=== PATIENT | male | born 1945 | race Caucasian/White ===

== ENCOUNTER → 2016-03-06 | Outpatient (CLI) | payer MEDICARE, BC ==
--- NOTE | 2016-03-06 13:34 | XR ---
EXAMINATION TYPE: XR chest 2V DATE OF EXAM: 03/06/2016 1:30 PM COMPARISON: 03/15/15 HISTORY: Shortness of breath TECHNIQUE: Frontal and lateral views of the chest are obtained. FINDINGS: Scattered senescent parenchymal changes noted. Hyperinflation compatible with COPD. No evidence for infiltrate. No evidence for atelectasis. Heart size is stable. Mediastinal structures are stable and grossly unremarkable. No evidence for hilar prominence. Degenerative changes dorsal spine. IMPRESSION: 1. No evidence for acute pulmonary disease.
== END | disposition home or self-care (01) ==
LOC: RADXRMAIN 13:12
PROVIDERS: ATTEND Urology
DX: C64.9 Malignant neoplasm of unspecified kidney, except renal pelvis (principal)
CPT/HCPCS: 71020

== ENCOUNTER → 2017-10-29 | Outpatient (CLI) | payer MEDICARE ==
--- NOTE | 2017-10-29 11:26 | XR ---
EXAMINATION TYPE: XR chest 2V DATE OF EXAM: 10/29/2017 COMPARISON: 03/06/2016 HISTORY: Shortness of breath TECHNIQUE: Frontal and lateral views of the chest are obtained. FINDINGS: Scattered senescent parenchymal changes noted. Hyperinflation compatible with COPD. No evidence for infiltrate. No evidence for atelectasis. Heart size is stable. Mediastinal structures are stable and grossly unremarkable. No evidence for hilar prominence. Degenerative changes dorsal spine. IMPRESSION: 1. No evidence for acute pulmonary disease.
== END | disposition home or self-care (01) ==
LOC: LABWHC1 10:45
PROVIDERS: ATTEND Urology
DX: Z08 Encounter for follow-up examination after completed treatment for malignant neoplasm (principal); C61 Malignant neoplasm of prostate; Z85.528 Personal history of other malignant neoplasm of kidney
CPT/HCPCS: 36415; 71046; 84153

== ENCOUNTER → 2018-03-12 | Outpatient (CLI) | payer MEDICARE ==
--- NOTE | 2018-03-12 10:56 | MR ---
EXAMINATION TYPE: MR Prostate wo/w con DATE OF EXAM: 03/12/2018 COMPARISON: None IMAGE QUALITY: Satisfactory. INDICATION: Prostate cancer PSA: 3.6 ng/ml on December 07, 2017 Recent Biopsy and Date: March 16 2017 Pathology Report (If Applicable): Focus of atypical glands suspicious for carcinoma on pathology medi al right basilar biopsy TECHNIQUE: Examination was performed using a 3T MRI without an endorectal coil. Multiparametric imaging was perf ormed with T2 mutliplanar sequences, axial diffusion weighted imaging and dynamic contrast enhanced i maging, utilizing 10 mL intravenous Gadavist gadolinium contrast. FINDINGS: There is no clinically significant cancer identified. PROSTATE VOLUME: 4.8 cm SI x 4.3 cm AP x 4.6 cm LR Vol= 49.4 cc PSA DENSITY: 5.93 ng/ml/cc Peripheral zone shows some vague areas of indistinct hyperintensity on ADC mapping, no moderately or markedly hypointense areas or suspicious areas of hyperintensity on diffusion-weighted imaging identi fied. Transitional zone shows markedly heterogeneous signal with more focal area of low T2 signal that has obscured margins in the left prostatic base measuring approximately 11 mm in AP diameter by 8 mm saunders sverse diameter seen best axial image 22. No restricted diffusion is seen at this level on diffusion- weighted images. Incidental no suspicious postcontrast enhancement with washout. Prostate capsule appears intact. Seminal vesicles are symmetric and felt within normal limits. Bladde r has mild wall thickening up to 5 mm with mild trabeculation, findings consistent with outlet obstru ction from BPH. Incidental small sized fat-containing right inguinal hernia. Visualized osseous structures are intact . IMPRESSION: Enlarged prostate gland consistent with BPH. Indeterminate left basilar transitional zone lesion appears to correlate with biopsy results. Highest Assessment Category: 3 MRI Stage: T1c N 0 M 0 based on review of pelvic images. False negative rates for MRI range from 5-20% depending on risk profile. Assessment Categories: 1 ? Very low (clinically significant cancer is highly unlikely to be present) 2 ? Low (clinically significant cancer is unlikely to be present) 3 ? Intermediate (the presence of clinically significant cancer is equivocal) 4 ? High (clinically significant cancer is likely to be present) 5 ? Very high (clinically significant cancer is highly likely to be present) Locations:
== END | disposition home or self-care (01) ==
LOC: RADMRIMAIN 08:13
PROVIDERS: ATTEND Urology
DX: N40.0 Benign prostatic hyperplasia without lower urinary tract symptoms (principal); C61 Malignant neoplasm of prostate
CPT/HCPCS: 82565; 72197; 36415; A9585

== ENCOUNTER → 2018-06-22 | Outpatient (CLI) | payer MEDICARE | END | disposition home or self-care (01) | LOC: LABWHC1 12:10 | PROVIDERS: ATTEND Urology | DX: C61 Malignant neoplasm of prostate (principal) | CPT/HCPCS: 36415; 84153 ==

== ENCOUNTER → 2018-07-16 | Outpatient (CLI) | payer MEDICARE | LOC: LABWHC1 13:35 | PROVIDERS: ATTEND Urology | DX: C61 Malignant neoplasm of prostate (principal) | CPT/HCPCS: 36415; 84153 ==

== ENCOUNTER → 2018-12-10 | Outpatient (CLI) | payer MEDICARE | END | disposition home or self-care (01) | LOC: LABWHC1 14:04 | PROVIDERS: ATTEND Urology | DX: C61 Malignant neoplasm of prostate (principal) | CPT/HCPCS: 36415; 84153 ==

== ENCOUNTER → 2019-02-15 | Outpatient (CLI) | payer MEDICARE ==
--- NOTE | 2019-02-16 07:41 | MR ---
EXAMINATION TYPE: MR Prostate wo/w con DATE OF EXAM: 02/15/2019 COMPARISON: Prior prostate MRI March 12, 2018. INDICATION: Prostate ca PSA: 4.6 ng/ml on December 10, 2018 increased from 3.6 on December 07, 2017. Recent Biopsy and Date: Atypia right base on biopsy March 16, 2017. TECHNIQUE: Examination was performed using a 3T MRI without an endorectal coil. Multiparametric imaging was perf ormed with T2 mutliplanar sequences, axial diffusion weighted imaging and dynamic contrast enhanced i maging, utilizing 10 mL intravenous Gadavist gadolinium contrast. FINDINGS: There is no clinically significant cancer identified. PROSTATE VOLUME: 4.5 cm SI x 4.9 cm AP x 5.7 cm LR Vol= 65.8 cc PSA DENSITY: 7.896 ng/ml/cc Peripheral zone shows stable vague areas of hypointensity on ADC mapping for reference right mid zone axial image 244. No new areas of moderate to marked hypointensity are identified. Central transitional zone redemonstrates enlargement and heterogeneous signal with focal area of low T2 signal in the left prosthetic base measuring roughly 8 mm axial image 29 not significantly changed from prior study. No restricted diffusion. No suspicious enhancement. No significant change from sami or. This is slightly more lateral segment of based and medial aspect. No new suspicious lesions. Prostatic capsule is maintained. Seminal vesicles are within normal limits. No new adjacent adenopath y. Bladder redemonstrates mild trabeculation and wall thickening. Visualized osseous structures are intact. No concerning bowel dilatation. Incidental small fat-contai humza right inguinal hernia redemonstrated. IMPRESSION: A new focus of clinically significant cancer is not identified. Enlarged prostate gland consistent wi th BPH redemonstrated. Highest Assessment Category: 2-3 MRI Stage: T1c N0 M0 based on review of pelvic images. False negative rates for MRI range from 5-20% depending on risk profile. Assessment Categories: 1 ? Very low (clinically significant cancer is highly unlikely to be present) 2 ? Low (clinically significant cancer is unlikely to be present) 3 ? Intermediate (the presence of clinically significant cancer is equivocal) 4 ? High (clinically significant cancer is likely to be present) 5 ? Very high (clinically significant cancer is highly likely to be present) Locations: PZ = peripheral zone; TZ = transition zone CZ=central zone; AFS = anterior fibromuscular stroma a=anterior half (i.e. PZa=anterior half of peripheral zone); pm= posterior medial (i.e PZpm) pl = postero-lateral (i.e. PZpl); p = posterior half (i.e. TZp) ; a = anterior half (i.e TZa or P Za) Other: N=no or no; E= equivocal; Y=yes EPE = extraprostatic extension NVB = neurovascular bundle NA = not applicable/not available
== END | disposition home or self-care (01) ==
LOC: RADMRIMAIN 12:09
PROVIDERS: ATTEND Urology
DX: C61 Malignant neoplasm of prostate (principal)
CPT/HCPCS: 72197; A9585

== ENCOUNTER → 2020-02-13 | Outpatient (CLI) | payer MEDICARE ==
--- NOTE | 2020-02-13 12:01 | XR ---
EXAMINATION TYPE: XR chest 2V DATE OF EXAM: 02/13/2020 COMPARISON: 10/29/2017 and 11/04/2012 HISTORY: 74-year-old male C61, D49.4 TECHNIQUE: PA and lateral views FINDINGS: The cardiomediastinal silhouette, aorta, and pulmonary vasculature are within normal limits. Some sta ble density in the periphery of the right midlung, unchanged from 2013, suspected bony etiology such as a partial rib synostosis. Otherwise, lungs and pleural spaces are clear. IMPRESSION: Some chronic density in the periphery of the right mid lung, suspected bony relating to the ribs, sta ble back to 2013. No acute cardiopulmonary process.
== END | disposition home or self-care (01) ==
LOC: LABWHC1 10:45
PROVIDERS: ATTEND Urology
DX: C61 Malignant neoplasm of prostate (principal); J98.4 Other disorders of lung
CPT/HCPCS: 36415; 71046; 84153

== ENCOUNTER → 2020-08-11 | Outpatient (CLI) | payer MEDICARE | END | disposition home or self-care (01) | LOC: LABWHC1 10:51 | PROVIDERS: ATTEND Urology | DX: C61 Malignant neoplasm of prostate (principal) | CPT/HCPCS: 36415; 84153 ==

== ENCOUNTER → 2021-01-24 | Outpatient (CLI) | payer MEDICARE | END | disposition home or self-care (01) | LOC: LABWHC1 14:14 | PROVIDERS: ATTEND Urology | DX: C61 Malignant neoplasm of prostate (principal) | CPT/HCPCS: 36415; 84153 ==

== ENCOUNTER → 2021-07-19 | Outpatient (CLI) | payer MEDICARE ==
--- NOTE | 2021-07-22 09:54 | PE ---
Nuclear medicine PET/CT HISTORY: C 16.8, gastric cancer, initial, renal cell carcinoma, subsequent Patient received 12.9 mCi F-18 FDG intravenously and delayed imaging was performed from the skull bas e to the mid thighs. A localization and attenuation correction CT scan was performed. Correlation CT scan 01/10/2015 Average mediastinal uptake SUV 1.7, average liver uptake SUV 2.4 Neck and chest: There is no cervical or supraclavicular adenopathy. No mediastinal, axillary, or avani r uptake for adenopathy. Coronary artery calcification is present. No evident lung mass. Anterior rib pseudoarticulation questioned on the right at the third rib. ABDOMEN: Left kidney and adrenal gland are surgically absent. There is some mild uptake in the distal aspect of the stomach, SUV 3.4. There is no ascites. No retroperitoneal adenopathy. No evident liver mass. Right adrenal gland is within normal limits. No pelvic adenopathy. Diverticular changes associ ated with the colon. Prostate is enlarged. Uptake at the level of the anus may be physiologic. Osseous structures show no suspicious uptake. Degenerative disc changes and facet arthropathy are not ed the lower lumbar spine. IMPRESSION: Postop changes. Mild uptake is noted within the stomach. Coronary artery disease. Diverti culosis and prostatic enlargement.
== END | disposition home or self-care (01) ==
LOC: RADPETMAIN 14:25
PROVIDERS: ATTEND Family Medicine
DX: C16.8 Malignant neoplasm of overlapping sites of stomach (principal); I25.10 Atherosclerotic heart disease of native coronary artery without angina pectoris; N40.0 Benign prostatic hyperplasia without lower urinary tract symptoms
CPT/HCPCS: 78815; A9552

== ENCOUNTER → 2021-07-24 | Outpatient (CLI) | payer MEDICARE | END | disposition home or self-care (01) | LOC: LABWHC1 12:47 | PROVIDERS: ATTEND Urology | DX: C61 Malignant neoplasm of prostate (principal) | CPT/HCPCS: 36415; 84153 ==

== ENCOUNTER 2022-07-03 14:02 | Day surgery (SDC) | payer MEDICARE ==
[2022-07-01 11:36] VITALS: BMI 30.2
--- NOTE | 2022-07-02 22:29 | P.GSHP ---
History of Present Illness H&P Date: 07/02/22 Chief Complaint: Prostate cancer The patient is a 77-year-old white male diagnosed with prostate cancer in 2016. He has been managed with active surveillance. His PSA level in February 2022 was 5.8. FRANKO revealed firmness on the lateral aspect of the right mid apex. MRI of the prostate showed 2 PI-RADS 4 lesions, one in the peripheral zone on each side. - Cardiovascular Cardiovascular: Reports high blood pressure - Genitourinary (Male) Genitourinary: Reports nocturia Past Medical History Past Medical History: Cancer, Hyperlipidemia, Hypertension, Prostate Disorder Additional Past Medical History / Comment(s): SKIN CANCER. LEFT KIDNEY CANCER AND METASTASIS TO ABDOMEN. GOUT History of Any Multi-Drug Resistant Organisms: None Reported Past Surgical History: Orthopedic Surgery Additional Past Surgical History / Comment(s): LEFT KIDNEY REMOVED. ABDOMINAL TUMOR REMOVED. MOHS PROCEDURE. EYELID SURGERY. LEFT MENISCUS REPAIR Past Anesthesia/Blood Transfusion Reactions: No Reported Reaction Past Psychological History: No Psychological Hx Reported Smoking Status: Never smoker Past Alcohol Use History: Occasional Past Drug Use History: None Reported - Past Family History Mother Family Medical History: Cancer Additional Family Medical History / Comment(s): LUNG CANCER Sister(s) Family Medical History: Cancer Additional Family Medical History / Comment(s): OVARIAN CANCER Medications and Allergies Home Medications Medication Instructions Recorded Confirmed Type Atorvastatin [Lipitor] 20 mg PO HS 07/01/22 07/01/22 History Magnesium Oxide [Magnesium] 500 mg PO DAILY 07/01/22 07/01/22 History Montelukast [Singulair] 10 mg PO HS 07/01/22 07/01/22 History Omeprazole [PriLOSEC] 20 mg PO DAILY 07/01/22 07/01/22 History Tamsulosin [Flomax] 0.4 mg PO HS 07/01/22 07/01/22 History Ubidecarenone [Coenzyme Q10] 100 mg PO DAILY 07/01/22 07/01/22 History allopurinoL 100 mg PO DAILY 07/01/22 07/01/22 History diphenhydrAMINE [Benadryl] 25 mg PO HS PRN 07/01/22 07/01/22 History lisinopriL [Zestril] 10 mg PO HS 07/01/22 07/01/22 History Allergies Allergy/AdvReac Type Severity Reaction Status Date / Time No Known Allergies Allergy Verified 07/01/22 11:24 Surgical - Exam - General well developed, well nourished, no distress - Neck no masses, trachea midline - Respiratory normal respiratory effort - Abdomen Abdomen: soft, non tender, no guarding, no rigid, no rebound - Genitourinary normal penis with no external lesions, testicles non-tender - Rectum Rectum: normal sphincter tone, no masses, other (Prostate moderately enlarged with smooth) - Psychiatric oriented to time, oriented to person, oriented to place, speech is normal, memory intact Assessment and Plan Assessment: The patient's prostate cancer is been managed with active surveillance. However, prostate MRI shows 2 PI-RADS 4 lesions. (1) Malignant neoplasm of prostate Status: Acute Code(s): C61 - MALIGNANT NEOPLASM OF PROSTATE SNOMED Code(s): 556229569 Plan: MRI ultrasound prostate fusion biopsy. The patient is aware of potential risks, which include anesthesia, bleeding, and infection.
[~2022-07-03 14:02] MED LIST: DEXAMETHASONE SOD PHOSPHATE 4 MG/ML 1 ML VIAL IV ONE; GENTAMICIN 120 MG in SODIUM CHLORIDE 0.9% 100 ML IVPB PRN; HYDROmorphone 0.5 MG/0.5 ML SYRINGE IVP PRN; LACTATED RINGERS 1,000 ML IV SCH; LIDOCAINE 1% (10MG/ML) FOR IV START INTRADERMA PRN; MIDAZOLAM 2 MG/2 ML VIAL IV PRN; ONDANSETRON 4 MG/2 ML VIAL IVP ONE
[2022-07-03 14:49] VITALS: RESP 16; TEMP 97
[2022-07-03] MEDS ORDERED: LIDOCAINE 2% INJ 20 MG/ML (2 ML VIAL) ONE (15:52)
[2022-07-03] MEDS ORDERED: PROPOFOL 10 MG/ML 20 ML VIAL IV ONE (15:52)
--- NOTE | 2022-07-03 16:21 | P.OP ---
Date of Procedure: 07/03/22 Preoperative Diagnosis: Adenocarcinoma the prostate Postoperative Diagnosis: Same Procedure(s) Performed: MRI ultrasound fusion biopsies of the prostate Anesthesia: MAC Surgeon: Michael Kirk Estimated Blood Loss (ml): 10 IV fluids (ml): 300 Indications for Procedure: The patient is a 77-year-old white male diagnosed with prostate cancer in 2016. He has been managed with active surveillance. His PSA level in February 2022 was 5.8. FRANKO revealed firmness on the lateral aspect of the right mid apex. MRI of the prostate showed 2 PI-RADS 4 lesions, one in the peripheral zone on each side. Operative Findings: Prostate volume 96 mL. Target lesions biopsied in addition to 12 template biopsies. Description of Procedure: The patient was taken to the operating room and placed in the left lateral decubitus position. The [employer] transrectal ultrasound probe was placed intrarectally. It was then placed within the stand of the [employer] MRI/TRUS Fusion for Prostate Biopsy system. The prostate was imaged in both the axial and sagittal planes, revealing a prostate volume of 96 mL. Using the Biopty gun, 3 biopsies were obtained from each of 2 target lesions, within the peripheral zone on each side. The remaining 12 biopsies of the peripheral zone were obtained utilizing a standard template. Once the procedure was completed, the ultrasound probe was removed. The patient tolerated the procedure well was taken to the recovery room stable condition.
[2022-07-03 16:40] VITALS: BP 123/76; PULSE 63
== END 2022-07-03 17:00 | disposition home or self-care (01) ==
LOC: OR 14:02
PROVIDERS: ATTEND Urology
DX: N42.31 Prostatic intraepithelial neoplasia (principal); E78.5 Hyperlipidemia, unspecified; I10 Essential (primary) hypertension; K21.9 Gastro-esophageal reflux disease without esophagitis; Z85.528 Personal history of other malignant neoplasm of kidney; Z85.46 Personal history of malignant neoplasm of prostate; Z98.890 Other specified postprocedural states; Z86.59 Personal history of other mental and behavioral disorders; Z80.1 Family history of malignant neoplasm of trachea, bronchus and lung; Z80.41 Family history of malignant neoplasm of ovary; Z79.899 Other long term (current) drug therapy; Z88.0 Allergy status to penicillin
CPT/HCPCS: 55700; J1100; J0690; J2405; J1580; J2704; J2001; 88305; 88344